=== PATIENT | male | born 1990 | race Two or more races ===

== ENCOUNTER 2017-02-22 06:18 | Day surgery (SDC) | payer OTHER ==
[2017-02-22] MEDS ORDERED: BUPIVACAINE MPF W/EPI 0.25% 30 ML VIAL ONE (07:59)
[2017-02-22] MEDS ORDERED: LIDOCAINE 1% INJ 50 ML MDV IJ ONE (08:00)
[2017-02-22] MEDS ORDERED: ATROPINE SULFATE 1 MG/10 ML DISP.SYRIN ONE (08:55)
[2017-02-22] MEDS ORDERED: HYDROMORPHONE INJ 2 MG/ML DISP.SYRIN IV PRN (10:00)
[2017-02-22] MEDS ORDERED: ONDANSETRON HCL/PF 4 MG/2 ML VIAL IVP PRN (10:00)
[2017-02-22] MEDS ORDERED: HYDROCODONE/APAP 5/325MG 1 EACH TABLET PO PRN ×2 (10:00)
[2017-02-22] MEDS ORDERED: ANESTHESIA TRAY IN PYXIS 1 EA TRAY MC ONE (12:04)
== END 2017-02-22 10:45 | disposition home or self-care (01) ==
LOC: DS 06:18
PROVIDERS: ATTEND Surgery
DX: D17.9 Benign lipomatous neoplasm, unspecified (principal)
CPT/HCPCS: 21933; 88304; 88305; A6402 ×3; J0330; J0461 ×2; J0690; J1100; J1170; J2370; J2405 ×2; J2704; J3490 ×4